=== PATIENT | female | born 1960 | race African-American/Black ===

== ENCOUNTER 2020-08-20 14:50 | Emergency (ER) | payer OTHER ==
[~2020-08-20] VITALS: Ht 170.2 cm; Wt 86.2 kg
[2020-08-20 14:59] VITALS: BP 120/78
[2020-08-20] MEDS ORDERED: DexAMETHasone SOD PHOS 10MG/1ML VIAL INJ IM ONE (16:15)
[2020-08-20] MEDS ORDERED: cefTRIAXone SOD 1,000 MG VL IM ONE (16:15)
== END 2020-08-20 17:07 | disposition home or self-care (01) ==
LOC: ER 14:50
DX: U07.1 COVID-19 (principal); J40 Bronchitis, not specified as acute or chronic; J03.90 Acute tonsillitis, unspecified; E11.9 Type 2 diabetes mellitus without complications; I10 Essential (primary) hypertension
CPT/HCPCS: 71045; 96372; 99284; J0696; J1100

== ENCOUNTER 2020-08-22 11:18 | Outpatient (CLI) | payer OTHER ==
[2020-08-22] MEDS ORDERED: BAMLANIVIMAB 700MG/200ML 200 ML IV ONE (12:00)
[2020-08-22 12:10] VITALS: BP 130/73
[2020-08-22 12:30] VITALS: BP 121/69
[2020-08-22 12:45] VITALS: BP 112/67
[2020-08-22 13:00] VITALS: BP 121/71
[2020-08-22 13:30] VITALS: BP 118/70
[2020-08-22 14:00] VITALS: BP 121/70
== END 2020-08-22 14:13 | disposition home or self-care (01) ==
LOC: ER 11:18
PROVIDERS: ATTEND Internal Medicine
DX: Z23 Encounter for immunization (principal); U07.1 COVID-19; R05 Cough; J42 Unspecified chronic bronchitis; I10 Essential (primary) hypertension; E11.9 Type 2 diabetes mellitus without complications
CPT/HCPCS: M0239; Q0239

== ENCOUNTER 2024-12-02 18:43 | Emergency (ER) | payer MEDICARE, OTHER ==
[~2024-12-02] VITALS: Ht 170.2 cm; Wt 76.0 kg
--- NOTE | 2024-12-02 19:04 | ED.PDOC ---
History of Present Illness HPI Comments 64 year old female presents to the ED with a chief complaint of generalized weakness onset 2 days. Patient states she has been experiencing generalized weakness as well as fatigue, shortness of breath, high blood pressure, nausea, dizziness for the past 2 days. Upon ED arrival BP 125/81, HR 111 was and BS was 100. PMHx HTN, DM, anemia. Denies chest pain, abdominal pain, vomiting, diarrhea, headache, blurry vision, dysuria, hematuria, cough, congestion, fever, chills. No other symptoms or modifying factors present at this time. Chief Complaint: General Weakness Time Seen by MD: 18:55 Primary Care Provider: JORGE ALBERTO Luther Notes: Medications, Allergies Allergies: Coded Allergies: NO KNOWN ALLERGIES (Unverified , 08/20/20) Information Source: Patient Mode of Arrival: Ambulatory Severity: Moderate Timing: Days Duration: Since onset Prehospital treatment: None Vital Signs Vital Signs Date Time Temp Pulse Resp B/P (MAP) Pulse Ox O2 Delivery O2 Flow Rate FiO2 12/02/24 21:26 Room Air* 0 21 12/02/24 21:26 97.9 100 14 119/81 (94) 97 97.9 Physical Exam General: Awake, alert and oriented. No acute distress. Skin: Skin in warm, dry and intact. Appropriate color for ethnicity. HEENT: The head is normocephalic and atraumatic. Conjunctivae are clear without exudates or hemorrhage. Sclera is non-icteric. EOM are intact. No signs of nystagmus. Eyelids are normal in appearance without swelling or lesions. Oral mucosa is pink and moist Neck: The neck is supple with normal range of motion. No JVD. Cardiac: Heart rate and rhythm are normal. No murmurs, gallops, or rubs are auscultated. Respiratory: No signs of respiratory distress. Lung sounds are clear in all lobes bilaterally without rales, rhonchi, or wheezes. Abdominal: Abdomen is soft, non-tender without distention. Bowel sounds are present and normoactive in all four quadrants. Extremities: Upper and lower extremities are atraumatic in appearance without deformity or edema. Neurological: The patient is awake, alert and oriented to person, place, and time with normal speech. Speech is clear. There is no facial asymmetry. Psychiatric: Appropriate mood and affect. Good judgement and insight. Review of Systems: REVIEW OF SYSTEMS: No fever, no chills, or fatigue HEENT: No sore throat, no earache, no congestion, no neck pain. Cardiac: No chest pain. No palpitations. Lungs: No shortness of breath, no cough. GI: No nausea, no vomiting, no diarrhea, no constipation, no abdominal pain : No dysuria, frequency, or urgency. No hematuria. Musculoskeletal: No joint pain , no joint swelling, no extremity edema. Skin: No rash, no itching. Neuro: No headache, no dizziness, no weakness Past Medical History PAST MEDICAL HISTORY: Anemia, DM, HTN Surgical History: Denies all surgeries FANS CLERK History: Denies all FANS CLERK Hx Family History Family History: Reviewed,noncontributory to illness Social History Smoker: Non-Smoker Alcohol: Denies ETOH Use Drugs: Denies Drug Use Lives In: Home Was a procedure done? Was a procedure done?: No EKG EKG : Pulse Rate (adult): 97 Cardiac Rhythm: NSR Comments No STEMI Differential Dx Considerations may include: Urinary tract infection, electrolyte imbalance, acute coronary syndrome, viral infection, autoimmune disorder, anemia, dehydration, cardiac arrhythmia, other X-Ray, Labs, Meds, VS Vital Signs Date Time Temp Pulse Resp B/P (MAP) Pulse Ox O2 Delivery O2 Flow Rate FiO2 12/02/24 21:26 Room Air* 0 21 12/02/24 21:26 97.9 100 14 119/81 (94) 97 97.9 12/02/24 19:30 97 12/02/24 19:03 97 12/02/24 18:54 98.5 111 16 125/81 (96) 96 98.5 Lab Test 12/02/24 21:42 12/02/24 19:21 12/02/24 19:00 12/02/24 18:53 Range/Units Influenza Type A Antigen Negative Negative Influenza Type B Antigen Negative Negative SARS-CoV-2 Antigen (Rapid) Negative NEGATIVE White Blood Count 4.6 4.4-10.8 10^3/uL Red Blood Count 5.29 H 4.0-5.20 10^6/uL Hemoglobin 15.5 12.2-16.2 g/dL Hematocrit 46.3 H 36.0-46.0 % Mean Corpuscular Volume 87.6 80.0-100.0 fL Mean Corpuscular Hemoglobin 29.4 28.0-32.0 pg Mean Corpuscular Hemoglobin Concent 33.5 32.0-36.0 g/dL Red Cell Distribution Width 13.0 11.8-14.3 % Platelet Count 247 140-450 10^3/uL Mean Platelet Volume 8.5 6.9-10.8 fL Neutrophils (%) (Auto) 36.6 L 37.0-80.0 % Lymphocytes (%) (Auto) 54.3 H 10.0-50.0 % Monocytes (%) (Auto) 7.1 0.0-12.0 % Eosinophils (%) (Auto) 1.5 0.0-7.0 % Basophils (%) (Auto) 0.5 0.0-2.0 % Neutrophils # (Auto) 1.7 1.6-8.6 10 ^3/uL Lymphocytes # (Auto) 2.5 0.4-5.4 10 ^3/uL Monocytes # (Auto) 0.3 0-1.3 10 ^3/uL Eosinophils # (Auto) 0.1 0-0.8 10 ^3/uL Basophils # (Auto) 0 0-0.2 10 ^3/uL Nucleated Red Blood Cells 0.1 % D-Dimer, Quantitative < 0.19 0.0-0.49 mg/L FEU Sodium Level 141 136-145 mmol/L Potassium Level 4.0 3.5-5.1 mmol/L Chloride Level 100 98-107 mmol/L Carbon Dioxide Level 32 H 20-31 mmol/L Anion Gap 9 5-15 Blood Urea Nitrogen 9 9-23 mg/dL Creatinine 0.95 0.550-1.02 mg/dL Glomerular Filtration Rate Calc 67 >90 mL/min BUN/Creatinine Ratio 9.5 L 10.0-20.0 Serum Glucose 93 74-106 mg/dL Calcium Level 10.6 H 8.7-10.4 mg/dL Magnesium Level 2.3 1.6-2.6 mg/dL Total Bilirubin 0.5 0.2-1.0 mg/dL Aspartate Amino Transferase (AST) 9 L 13-40 U/L Alanine Aminotransferase (ALT) 13 7-40 U/L Alkaline Phosphatase 95 46-116 U/L Troponin I High Sensitivity 3 L </=34 ng/L B-Type Natriuretic Peptide 3.14 0-100 pg/mL Total Protein 8.3 H 5.7-8.2 g/dL Albumin 5.3 H 3.2-4.8 g/dL Urine Color Colorless Yellow Urine Clarity Clear Clear Urine pH 7.0 5.0-9.0 Urine Specific [place] 1.009 1.001-1.035 Urine Protein Negative Negative Urine Ketones Negative Negative Urine Blood Negative Negative /uL Urine Nitrite Negative Negative Urine Bilirubin Negative Negative Urine Urobilinogen Normal Negative mg/dL Urine Leukocyte Esterase Negative Negative /uL Urine RBC <1 0 - 4 /hpf Urine Microscopic WBC 1 0-5 /HPF Urine Squamous Epithelial Cells Few <5 /hpf Urine Bacteria None seen None Seen /hpf Urine Glucose 4+ H Normal mg/dL POC Glucose 100 70-106 mg/dl IMPRESSION: 1. No acute cardiopulmonary disease. Unchanged from prior study. ATED BY: SIMONA AMADO MD DICTATED DATE/TIME: 12/02/241924 SIGNED BY: SIMONA AMADO MD SIGNED DATE/TIME: 12/02/241924 CC: Images Reviewed?: Images reviewed and evaluated by me (Independent interpretation of chest x-ray: No acute disease) Time of 1ST Reevaluation: 19:25 Reevaluation 1ST: Unchanged Patient Education/Counseling: Need For Follow Up Family Education/Counseling: No Family Present Departure 1 Departure Time of Disposition: 00:11 Impression: Primary Impression: Weakness generalized Additional Impression: Eloped from emergency department Disposition: 07 LEFT AWOL/ELOPED Condition: Stable Comments 54-year-old female who presented to the emergency department with generalized weakness. Patient was well-appearing, nontoxic. Vital signs stable. While was actively managing a critically ill patient patient eloped from the emergency department prior to my ability to review test results with the patient. I was unable to perform re-evaluation and provide discharge instructions. - I reviewed the following notes from the pt's past medical encounters: Encounter July 2020 for bronchitis/tonsillitis The following tests were ordered, and results were reviewed by me: (See diagnostic results section) The following test were independently interpreted by me: EKG, chest x-ray Additional information was gathered from interviewing the following independent historians: N/A I reviewed and agreed with the following test results read by other providers: N/A Critical Care Note Critical Care Time?: No Stability Stability form required: No I personally scribed for NEGRITO MUNSON MD ([email or web address]) on 12/02/24 at 19:04. Electronically submitted by Melinda Berrios ([email or web address]). I personally scribed for NEGRITO MUNSON MD ([email or web address]) on 12/02/24 at 19:30. Electronically submitted by Melinda Berrios ([email or web address]). I personally scribed for NEGRITO MUNSON MD ([email or web address]) on 12/02/24 at 19:31. Electronically submitted by Melinda Berrios ([email or web address]). NEGRITO MUNSON MD December 02, 2024 19:04
--- NOTE | 2024-12-02 19:06 | ECG ---
[facility] Test Date: 2024-12-02 Test Time: 19:03:53 Pat Name: NAJMA HOLGUIN Department: ER Room: Gender: F [employer] Technician: TORREY : 1960 Requested By: NEGRITO MUNSON Order Number: [id number] Reading MD: Gregory Buck Measurements Intervals [place] Rate: 97 P: 80 [place]: 166 QRS: 62 QRSD: 87 T: 60 QT: 345 QTc: 439 Interpretive Statements Sinus rhythm Consider left atrial enlargement Electronically Signed On 12-03-2024 21:10:59 PDT by Gregory Buck Please click the below link to view image of tracing.
--- NOTE | 2024-12-02 19:27 | DVH ---
CHEST RADIOGRAPH Indication: Shortness of breath Technique: Single frontal view of the chest was obtained Comparison: CHEST XRAY 1 VIEW on DOS: 08/20/20 FINDINGS: Lines and Tubes: None Lungs: No focal consolidation. Pleura: No effusion. No pneumothorax. Cardiomediastinal contours: Unremarkable Bones: No acute osseous abnormality. IMPRESSION: 1. No acute cardiopulmonary disease. Unchanged from prior study.
[2024-12-02 19:29] LABS: Urine Bacteria None Seen /hpf (None Seen)
[2024-12-02 20:00] LABS: Urine Blood Negative /uL (Negative); Urine Clarity Clear (Clear); Urine Color Colorless (Yellow); Urine Protein, UAD Negative (Negative); Urine Specific Gravity 1.009 (1.001-1.035); Urine Squamous Epithelial Cell FEW /hpf (<5); Urine Urobilinogen Normal (Negative); Urine WBC 1 /HPF (0-5)
[2024-12-02 20:10] LABS: Basophils # (auto) 0 10 ^3/uL (0-0.2); Basophils % (auto) 0.5 % (0.0-2.0); Eosinophils # (auto) 0.1 10 ^3/uL (0-0.8); Eosinophils % (auto) 1.5 % (0.0-7.0); Hematocrit 46.3 % (36.0-46.0); Hemoglobin 15.5 g/dL (12.2-16.2); Lymphocytes # (auto) 2.5 10 ^3/uL (0.4-5.4); Lymphocytes % (auto) 54.3 % (10.0-50.0); Mean Corpuscular Hemoglobin 29.4 pg (28.0-32.0); Mean Corpuscular Hgb Conc. 33.5 g/dL (32.0-36.0); Mean Corpuscular Volume 87.6 fL (80.0-100.0); Monocytes # (auto) 0.3 10 ^3/uL (0-1.3); Monocytes % (auto) 7.1 % (0.0-12.0); Neutrophils # (auto) 1.7 10 ^3/uL (1.6-8.6); Neutrophils % (auto) 36.6 % (37.0-80.0); Nucleated Red Blood Cells % 0.1 %; Platelet Count (auto) 247 10^3/uL (140-450); Red Blood Cells 5.29 10^6/uL (4.0-5.20); White Blood Cell 4.6 10^3/uL (4.4-10.8)
[2024-12-02 20:21] LABS: Alanine Aminotransferase 13 U/L (7-40); Alkaline Phosphatase 95 U/L (46-116); Anion Gap 9 (5-15); BUN/Creatinine Ratio 9.5 (10.0-20.0); Chloride 100 mmol/L (98-107); Glucose 93 mg/dL (74-106); Magnesium 2.3 mg/dL (1.6-2.6); Sodium 141 mmol/L (136-145)
[2024-12-02 20:22] LABS: Albumin 5.3 g/dL (3.2-4.8); Aspartate Aminotransferase 9 U/L (13-40); Bilirubin, Total 0.5 mg/dL (0.2-1.0); Blood Urea Nitrogen 9 mg/dL (9-23); Calcium 10.6 mg/dL (8.7-10.4); Carbon Dioxide 32 mmol/L (20-31); Total Protein 8.3 g/dL (5.7-8.2)
[2024-12-02] MEDS ORDERED: SODIUM CHLORIDE 0.9% 1,000 ML IV ONE (21:15)
[2024-12-02 21:26] VITALS: BP 119/81; PULSE 100; RESP 14; TEMP 97.9; O2SAT 97
[2024-12-02 22:27] LABS: COVID19 ANTIGEN SOFIA FIA NEGATIVE (NEGATIVE)
[2024-12-02 22:28] LABS: Rapid Influenza A Negative (Negative); Rapid Influenza B Negative (Negative)
== END 2024-12-02 22:16 | disposition left against medical advice (07) ==
LOC: ER 18:43
DX: R53.1 Weakness (principal); R53.83 Other fatigue; R06.02 Shortness of breath; R11.0 Nausea; R42 Dizziness and giddiness; E11.9 Type 2 diabetes mellitus without complications; I10 Essential (primary) hypertension; Z20.822 Contact with and (suspected) exposure to COVID-19
CPT/HCPCS: 36415; 71045; 80053; 81001; 82947; 82962; 83735; 83880; 84484; 85025; 85379; 87426; 87804; 93005